=== PATIENT | female | born 1940 | race Caucasian/White ===

== ENCOUNTER → 2017-08-06 08:22 | Outpatient (CLI) | payer MEDICARE, OTHER, SELFPAY ==
[2017-08-06 10:35] LABS: Hemoglobin 14.1 g/dl (12.0-15.0); Mean Corp Hgb Conc 34.4 g/gl (32-36); Mean Corpuscular Hgb 31.9 pg (27.0-32.0); Mean Corpuscular Volume 92.8 fL (81-99); Mean Platelet Vol. 10.4 fl (6.2-12.0); Platelet Count 235 K/mm3 (150-450); Red Blood Count 4.42 M/mm3 (4.2-5.4); White Blood Count 7.3 K/mm3 (4.4-11.0)
[2017-08-06 10:37] LABS: Scan Indicated on CBC? Y/N NO
[2017-08-06 10:53] LABS: AST(SGOT) 18 U/L (15-37); Alanine Aminotransfer ALT/SGPT 33 U/L (13-56); Albumin, Serum 3.5 g/dL (3.2-5.0); Alkaline Phosphatase 67 U/L (45-117); Anion Gap 9 (5-15); BUN 14 mg/dL (7-18); BUN/Creat Ratio 19.2 RATIO (10-20); Calcium,Total 8.6 mg/dL (8.5-10.1); Chloride 106 mmol/L (98-107); Cholesterol 182 mg/dL (200); Creatinine, Serum 0.73 mg/dL (0.55-1.02); EST Glomerular Filtration Rate 83 mL/min (>60); Est Glom Filt Rate - Afr Amer 100 mL/min (>60); Globulin 3.5 g/dL (2.2-4.2); Glucose 126 mg/dL (74-106); High Density Lipoprotein 55 mg/dL; Potassium 4.4 mmol/L (3.5-5.1); Sodium Level 141 mmol/L (136-145); T4 Free Direct 1.11 ng/dL (0.76-1.46); Thyroid Stim Hormone (TSH) 1.54 uIU/mL (0.358-3.74); Triglycerides 137 mg/dL; Very Low Density Lipoprotein 27 mg/dL (5-40)
[2017-08-07 10:27] LABS: Vitamin D,25 Hydroxy 52.2 ng/mL (29.95-100.01)
== END ==
PROVIDERS: Family Provider Family Medicine; PCP Family Medicine; Visit Provider Family Medicine
DX: Z00.00 Encounter for general adult medical examination without abnormal findings (principal)
CPT/HCPCS: 36415; 80053; 80061; 82306; 84439; 84443; 85027

== ENCOUNTER → 2017-09-30 10:55 | Outpatient (CLI) | payer MEDICARE, OTHER, SELFPAY | PROVIDERS: Family Provider Family Medicine; PCP Family Medicine; Visit Provider Family Medicine | DX: I83.93 Asymptomatic varicose veins of bilateral lower extremities (principal); M79.89 Other specified soft tissue disorders; M79.604 Pain in right leg; M79.605 Pain in left leg | CPT/HCPCS: 93970 ==

== ENCOUNTER → 2017-12-16 08:53 | Outpatient (CLI) | payer MEDICARE, OTHER, SELFPAY ==
[2017-12-16 10:37] LABS: Hematocrit 40.1 % (37-47); Hemoglobin 13.6 g/dl (12.0-15.0); Mean Corp Hgb Conc 33.9 g/gl (32-36); Mean Corpuscular Hgb 31.1 pg (27.0-32.0); Mean Corpuscular Volume 91.8 fL (81-99); Mean Platelet Vol. 10.5 fl (6.2-12.0); Platelet Count 224 K/mm3 (150-450); RBC Distribution Width CV 12.9 % (11.6-14.6); RBC Distribution Width SD 42.7 fl (35.1-43.9); Red Blood Count 4.37 M/mm3 (4.2-5.4); White Blood Count 6.2 K/mm3 (4.4-11.0)
[2017-12-16 10:48] LABS: Scan Indicated on CBC? Y/N NO
[2017-12-16 10:54] LABS: Vitamin B12 606 pg/mL (211-911)
[2017-12-16 11:14] LABS: AST(SGOT) 19 U/L (15-37); Alanine Aminotransfer ALT/SGPT 39 U/L (13-56); Albumin, Serum 3.7 g/dL (3.2-5.0); Alkaline Phosphatase 68 U/L (45-117); Anion Gap 12 (5-15); BUN 11 mg/dL (7-18); Calcium,Total 8.9 mg/dL (8.5-10.1); Chloride 106 mmol/L (98-107); Creatinine, Serum 0.73 mg/dL (0.55-1.02); EST Glomerular Filtration Rate 82 mL/min (>60); Est Glom Filt Rate - Afr Amer 100 mL/min (>60); Globulin 3.6 g/dL (2.2-4.2); Glucose 132 mg/dL (74-106); Protein, Total 7.3 g/dL (6.4-8.2); Sodium Level 140 mmol/L (136-145); T4 Total, Thyroxin 12.7 ug/dL (4.8-13.9); Thyroid Stim Hormone (TSH) 1.56 uIU/mL (0.358-3.74)
== END ==
PROVIDERS: Family Provider Family Medicine; PCP Family Medicine; Visit Provider Family Medicine
DX: I10 Essential (primary) hypertension (principal); E11.9 Type 2 diabetes mellitus without complications; E03.9 Hypothyroidism, unspecified; R53.83 Other fatigue
CPT/HCPCS: 36415; 80053; 82306; 82607; 84436; 84443; 85027

== ENCOUNTER → 2018-09-05 10:42 | Outpatient (CLI) | payer MEDICARE, OTHER, SELFPAY ==
--- NOTE | 2018-09-05 10:50 | US_ITS ---
STUDY: THYROID ULTRASOUND REASON FOR EXAM: Female, 77 years old. Nodules TECHNIQUE: Ultrasound evaluation of the thyroid was performed with real-time and static chilel-scale imaging. COMPARISON: 2013 FINDINGS: RIGHT LOBE: The right lobe of the thyroid gland measures 4.3 x 1.4 x 1.8 cm. There is a homogeneous echotexture. 2 separate simple cysts, larger measures 0.4 centimeters, smaller 0.3 cm. LEFT LOBE: The left lobe of the thyroid gland measures 3.4 x 1.5 x 1.2 cm. There is a homogeneous echotexture. There is a solid 0.4 x 0.3 x 0.3 cm nodule, and a 0.6 x 0.5 x 0.4 cm cyst. ISTHMUS: The isthmus measures 0.2 cm. The regional lymph nodes are normal. US/Thyroid IMPRESSION: Normal sized thyroid gland with bilateral subcentimeter cysts and a solid 0.4 cm nodule in the left lobe. This is too small to characterize, and a six-month follow-up is recommended to assure stability Electronically Signed: Kamar Bustamante MD at 13:53 EDT , Service support ,
== END ==
PROVIDERS: Family Provider Family Medicine; PCP Family Medicine; Referring Provider Family Medicine; Visit Provider Family Medicine
DX: E03.9 Hypothyroidism, unspecified (principal)
CPT/HCPCS: 76536

== ENCOUNTER → 2018-09-15 13:04 | Outpatient (CLI) | payer MEDICARE, OTHER, SELFPAY | PROVIDERS: Family Provider Family Medicine; PCP Family Medicine; Referring Provider Nurse Practitioner Adult Health; Visit Provider Nurse Practitioner Adult Health | DX: R30.0 Dysuria (principal) | CPT/HCPCS: 87086; 87088 ==

== ENCOUNTER 2018-11-06 09:30 | Outpatient (RCR) | payer MEDICARE, BC, OTHER, SELFPAY ==
--- NOTE | 2018-09-10 09:41 | HP.PTEVAL_ITS ---
Patient's Visit Information ADRY BOYLE is a 77 year old F referred to Physical Therapy by Forrest Centeno MD with a diagnosis of RIGHT I-T BAND TENDONITIS. Date of Evaluation: 09/09/18 Physical Therapist: Daruis Long, PT, Cert MDT, OCS - Visit Plan Frequency: 2x /Week Duration: 4 Weeks Plan: PT INTERVENTIONS STRETCHING IT BAND,MANUAL THERAPY STM/ IT BAND -METS - SHOOTGUN ,STICK,MODALITIES,HIP STRENGTHENING - Subjective Findings: This 77 y/o female presents to physical therapy with right IT band syndrome. Patient has had right lateral hip pain for several months . Patient located of pain lateral hip to knee ,although patient does have right LS pain. Aggravating walking ,standing lifting leg,stairs . Alleviating Factors sitting. Denies paratghesia/tingling. Bowel/bladder good. Coughing/sneezing. Patient pain affects sleeping on right. Patient pain affects ability to perform housework tasks ,ADL'S ,and houseworks. Patient symptoms affects QOL and function. SOOCIAL: . VOCATION: retired - Pain Right Hip Pain Intensity (Out of 10): 3 Pain Intensity Range: 10 - Objective POSTURE: mild foward posture,knee valgius ..assymtical leg length. NEURO: denies parathesia/tingling,reflexes L3-4,L4-5,L5-S1 2/3. PALAPTION: tender lateral hip ,IT BAND ,greater tronchanter. GAIT: antalgic right side with stance time. PROM: hip flexion 100 degrres,ER 50 ,IR 45 degrees pain. MMT: quads/hams 4/5,hip flexion 4-/5,hip abd 3+/5. FLEXABLITY: piriformis mod tight,IT band min tight - Special Tests R Hip Scour: Negative R Hip Quadrant - Intraarticular Pathology: Negative R Hip Trendelenberg - Glut Medius: Negative R Hip Kristin - IT Band: Negative - Goals Goal 1:: Patient to be Independant with HEP Goal Time Frame: 4-6 Weeks Goal 2:: Patient to decrease lateral hip pain by 50% or greatrer to improve function Goal Time Frame: 4-6 Weeks Goal 3:: Patient increase strength hip abd to 4-/5 to improve gait. Goal Time Frame: 4-6 Weeks Goal 4:: Patient to improve gait with less antalgic 80% Goal Time Frame: 4-6 Weeks Goal 5:: Patient to improve LFES score by 10 points or greater to improve QOL. Goal Time Frame: 4-6 Weeks - Rehabilitation Potential Physical Therapy Diagnosis: This patient has right I-T band along with greater tronhanter tendonitis with pain ,weakness GLUT-MEDIUS,antalgic gait along with leg length discrepency which can be corrected with METS shoot gun tech . Patient to benifit from skilled PT Rehabilitation Potential: Good - Anticipated Interventions Patient/Client Instruction: Educate patient on: Condition, Plan of Care For the Purpose of:: To decrease pain, To increase ROM, To improve muscle performance and motor function, To improve ability to perform ADL's, To increase tolerance to activity/condition/position, To improve ability of physical actions for home/community/work/leisure, To improve health of tissue, To decrease soft tissue restriction, To improve balance, To improve ability to perform tasks related to life management Therapeutic Exercise to Include: Strength training, Flexibilty training, Active ROM Comment: I-T BAND For the Purpose of:: To decrease pain, To decrease swelling/inflammation, To increase oxygenation perfusion, To improve muscle performance and motor function, To increase tolerance to activity/condition/position, To improve ability of physical actions for home/community/work/leisure, To decrease soft tissue restriction, To increase flexibility/ROM Manual Therapy Techniques to Include: Soft tissue mobilization Comment: I T BAND For the Purpose of:: To decrease pain, To increase ROM, To improve nutrient delivery to tissue, To increase oxygenation perfusion, To improve health of tissue, To decrease soft tissue restriction TENS: Yes IF ES: Yes Cryotherapy (ice pack, ice massage): Yes Thermo therapy (hot pack): Yes Ultrasound (thermal/non thermal): Yes For the Purpose of:: To decrease pain, To increase ROM, To improve nutrient delivery to tissue, To increase oxygenation perfusion, To improve health of tissue, To decrease soft tissue restriction Thank you for the opportunity to evaluate your patient. For Medicare and Medicare HMO plans, please review the plan of care and approve it. It will need to be FAXED BACK to us at [phone] for Medicare purposes. For Medicare only, by signing this I certify the plan of care. Please let me know if there are questions or concerns regarding this plan of care. Physician Signature: Date:
--- NOTE | 2018-10-09 13:27 | HP.PTREVAL ---
Forrest Centeno MD, It has been my pleasure to treat ADRY BOYLE over the last 8 visits for RIGHT I-T BAND TENDONITIS. Please see the progress note below for an update on the physical therapy plan of care! Subjective: Pain is better overall.. twisting motion aggravates symptoms hip. Able to exercise.. symptoms worse with inclines and stairs. Objective/Function: POSTURE: mild foward posture. GAIT: ambulates with antalgic gait right side. PALAPTION: tender mild lateral I T BAND. MMT: quads/hams 4/5,hip flexion 4-/5,abd 3+/5. FLEXABLITY: hams and piriformis min tight Plan Plan: PRECAUTIONS (ALLERGIC : LATEX). CONT WITH POC PT INTERVENTIONS STRETCHING IT BAND,MANUAL THERAPY STM/ IT BAND,-MODALITIES,HIP STRENGTHENING Goals Goal 1:: Patient to be Independant with HEP Goal Time Frame: 4-6 Weeks Goal 2:: Patient to decrease lateral hip pain by 50% or greatrer to improve function Goal Time Frame: 4-6 Weeks Goal 3:: Patient increase strength hip abd to 4-/5 to improve gait. Goal Time Frame: 4-6 Weeks Goal 4:: Patient to improve gait with less antalgic 80% Goal Time Frame: 4-6 Weeks Goal 5:: Patient to improve LFES score by 10 points or greater to improve QOL. Goal Time Frame: 4-6 Weeks Anticipated Interventions Patient/Client Instruction: Educate patient on: Condition, Plan of Care For the Purpose of:: To decrease pain, To increase ROM, To improve muscle performance and motor function, To improve ability to perform ADL's, To increase tolerance to activity/condition/position, To improve ability of physical actions for home/community/work/leisure, To improve health of tissue, To decrease soft tissue restriction, To improve balance, To improve ability to perform tasks related to life management Therapeutic Exercise to Include: Strength training, Flexibilty training, Active ROM Comment: I-T BAND For the Purpose of:: To decrease pain, To decrease swelling/inflammation, To increase oxygenation perfusion, To improve muscle performance and motor function, To increase tolerance to activity/condition/position, To improve ability of physical actions for home/community/work/leisure, To decrease soft tissue restriction, To increase flexibility/ROM Manual Therapy Techniques to Include: Soft tissue mobilization Comment: I T BAND For the Purpose of:: To decrease pain, To increase ROM, To improve nutrient delivery to tissue, To increase oxygenation perfusion, To improve health of tissue, To decrease soft tissue restriction TENS: Yes IF ES: Yes Cryotherapy (ice pack, ice massage): Yes Thermo therapy (hot pack): Yes Ultrasound (thermal/non thermal): Yes For the Purpose of:: To decrease pain, To increase ROM, To improve nutrient delivery to tissue, To increase oxygenation perfusion, To improve health of tissue, To decrease soft tissue restriction Please do not hesitate to contact me at [phone] by phone or if you have questions or concerns regarding this new plan of care! Sincerely, Darius Long, PT, Cert MDT, OCS
--- NOTE | 2018-11-06 10:00 | HP.PTDCSUM ---
HP - PT D/C Summary It has been my pleasure to treat ADRY BOYLE under orders from Forrest Centeno MD, for the diagnosis of RIGHT I-T BAND TENDONITIS for a total of 16 visit(s). Discharge Date: 11/06/18 Please see the following information for a summary of their discharge status. - Subjective Subjective: Doing better overall.. - Pain Right Hip Pain Intensity (Out of 10): 1 - Overall Improvement % Improvement: 65 - Objective Objective/Function: POSTURE: mild foward posture. GAIT: reciprocal pattern. MMT: quads/hams/hip flexion 4/5,abd 4-/5. FLEXABLITY: WFL. PALAPATION: MILD TENDER GREATER TRONCHANTER - Goals Goal 1:: Patient to be Independant with HEP Goal Progress: Goal Met Goal 2:: Patient to decrease lateral hip pain by 50% or greatrer to improve function Goal Progress: Goal Met Goal 3:: Patient increase strength hip abd to 4-/5 to improve gait. Goal Progress: Goal Met Goal 4:: Patient to improve gait with less antalgic 80% Goal Progress: Goal Met Goal 5:: Patient to improve LFES score by 10 points or greater to improve QOL. - Plan Plan: D/C - D/C Information Discharge Comments: HEOP If there are questions or concerns regarding this patient's physical therapy, please feel free to call me at [phone]. Thank you for the referral of this patient. Sincerely, Darius Long, PT, Cert MDT, OCS
== END 2018-11-06 19:00 | disposition home or self-care (01) ==
LOC: PT 09:30
PROVIDERS: Family Provider Family Medicine; PCP Family Medicine; Referring Provider Family Medicine; Visit Provider Family Medicine
DX: M76.31 Iliotibial band syndrome, right leg (principal)
CPT/HCPCS: 97014; 97110; 97162; 97530; G0283

== ENCOUNTER → 2018-11-27 09:48 | Outpatient (CLI) | payer MEDICARE, OTHER, SELFPAY ==
[2018-11-27 12:30] LABS: Hematocrit 41.5 % (37-47); Hemoglobin 13.8 g/dL (12.0-15.0); Mean Corp Hgb Conc 33.3 g/dL (32-36); Mean Corpuscular Hgb 30.3 pg (27.0-32.0); Mean Platelet Vol. 10.6 fl (6.2-12.0); Platelet Count 224 K/mm3 (150-450); RBC Distribution Width CV 12.8 % (11.6-14.6); RBC Distribution Width SD 41.8 fl (35.1-43.9); Red Blood Count 4.56 M/mm3 (4.2-5.4)
[2018-11-27 12:39] LABS: Vitamin B12 437 pg/mL (211-911); Vitamin D,25 Hydroxy 43.6 ng/mL (29.95-100.01)
[2018-11-27 12:41] LABS: ALB/GLOB Ratio 1.1 RATIO (0.9-2.4); AST(SGOT) 18 U/L (15-37); Alanine Aminotransfer ALT/SGPT 37 U/L (13-56); Albumin, Serum 3.7 g/dL (3.2-5.0); Alkaline Phosphatase 72 U/L (45-117); Anion Gap 7 (5-15); BUN 12 mg/dL (7-18); BUN/Creat Ratio 16.5 RATIO (10-20); Calcium,Total 8.8 mg/dL (8.5-10.1); Chloride 104 mmol/L (98-107); Cholesterol 154 mg/dL (200); Creatinine, Serum 0.73 mg/dL (0.55-1.02); EST Glomerular Filtration Rate 83 mL/min (>60); Est Glom Filt Rate - Afr Amer 100 mL/min (>60); Globulin 3.4 g/dL (2.2-4.2); Glucose 141 mg/dL (74-106); High Density Lipoprotein 45 mg/dL; Potassium 3.7 mmol/L (3.5-5.1); Protein, Total 7.1 g/dL (6.4-8.2); Sodium Level 138 mmol/L (136-145); Thyroid Stim Hormone (TSH) 1.29 uIU/mL (0.358-3.74); Triglycerides 136 mg/dL; Very Low Density Lipoprotein 27 mg/dL (5-40)
== END ==
PROVIDERS: Family Provider Family Medicine; PCP Family Medicine; Referring Provider Family Medicine; Visit Provider Family Medicine
DX: E11.9 Type 2 diabetes mellitus without complications (principal); E03.9 Hypothyroidism, unspecified; E53.8 Deficiency of other specified B group vitamins; E55.9 Vitamin D deficiency, unspecified
CPT/HCPCS: 36415; 80053; 80061; 82306; 82607; 84443; 85027

== ENCOUNTER → 2020-08-25 07:25 | Outpatient (CLI) | payer MEDICARE, OTHER, SELFPAY ==
[2020-08-25 10:17] LABS: Vitamin B12 442 pg/mL (211-911); Vitamin D,25 Hydroxy 40.4 ng/mL
[2020-08-25 11:34] LABS: ALB/GLOB Ratio 1.2 RATIO (0.9-2.4); AST(SGOT) 27 U/L (15-37); Alanine Aminotransfer ALT/SGPT 56 U/L (13-56); Albumin, Serum 3.8 g/dL (3.2-5.0); Alkaline Phosphatase 79 U/L (45-117); Anion Gap 9 (5-15); BUN 13 mg/dL (7-18); BUN/Creat Ratio 17.3 RATIO (10-20); Calcium,Total 8.7 mg/dL (8.5-10.1); Chloride 103 mmol/L (98-107); Cholesterol 180 mg/dL (200); Creatinine, Serum 0.75 mg/dL (0.55-1.02); EST Glomerular Filtration Rate 80 mL/min (>60); Est Glom Filt Rate - Afr Amer 96 mL/min (>60); Globulin 3.3 g/dL (2.2-4.2); Glucose 188 mg/dL (74-106); High Density Lipoprotein 48 mg/dL; Protein, Total 7.1 g/dL (6.4-8.2); Sodium Level 140 mmol/L (136-145); Thyroid Stim Hormone (TSH) 1.18 uIU/mL (0.358-3.74); Triglycerides 129 mg/dL; Very Low Density Lipoprotein 26 mg/dL (5-40)
== END ==
PROVIDERS: PCP Family Medicine; Referring Provider Family Medicine; Visit Provider Family Medicine
DX: E11.9 Type 2 diabetes mellitus without complications (principal); E55.9 Vitamin D deficiency, unspecified; E03.9 Hypothyroidism, unspecified; E53.8 Deficiency of other specified B group vitamins
CPT/HCPCS: 36415; 80053; 80061; 82306; 82607; 84443

== ENCOUNTER → 2020-09-09 09:50 | Outpatient (CLI) | payer MEDICARE, OTHER, SELFPAY ==
--- NOTE | 2020-09-09 09:58 | US_ITS ---
STUDY: THYROID ULTRASOUND REASON FOR EXAM: Female, 79 years old. Abnormal TSH levels TECHNIQUE: Ultrasound evaluation of the thyroid was performed with real-time and static chilel-scale imaging. COMPARISON: 09/05/2018 FINDINGS: RIGHT LOBE: The right lobe of the thyroid gland measures 3.8 x 1.0 x 1.2 cm. There is a homogeneous echotexture. There is a stable 3 mm cyst. There is a hyperechoic nodule measuring 0.4 cm. LEFT LOBE: The left lobe of the thyroid gland measures 3.4 x 1.1 x 1.1 cm. There is a homogeneous echotexture. There is a stable 0.4 cm cyst, and a stable 0.8 cm nodule. There is a new hyperechoic 0.7 cm nodule. ISTHMUS: The isthmus measures 0.3 cm. The regional lymph nodes are normal. US/Thyroid IMPRESSION: Normal sized homogeneous thyroid gland with bilateral subcentimeter cysts and bilateral subcentimeter nodules. Findings suggest goiter. However, because there is a new hyperechoic nodule in the left thyroid lobe compared to the previous study, another six-month follow-up ultrasound is recommended Electronically Signed: Kamar Bustamante MD at 15:07 EDT , Service support ,
== END ==
PROVIDERS: PCP Family Medicine; Referring Provider Family Medicine; Visit Provider Family Medicine
DX: E03.9 Hypothyroidism, unspecified (principal)
CPT/HCPCS: 76536

== ENCOUNTER 2020-11-08 12:30 | Outpatient (RCR) | payer MEDICARE, OTHER, BC, SELFPAY ==
--- NOTE | 2020-09-08 11:34 | HP.PTEVAL_ITS ---
Patient's Visit Information ADRY BOYLE is a 79 year old F referred to Physical Therapy by Dr. Forrest Arnett MD with a diagnosis of R HIP GREATER TROCHANTERIC BURSITIS. Date of Evaluation: 09/08/20 Physical Therapist: Nicole Marin PT, Cert MDT - Visit Plan Frequency: 2-3x /Week Duration: 4-6 Weeks Plan: RIGHT HIP US. MH. POSTURE CORRECTION/STRENGTHENING, INSTRUCTION IN APPROPRIATE BODY MECHANICS AND ACTIVITY MODIFICATIONS. DLS STARTING WITH A RKYS TRAL SPINE PROGRESSING ROM TOLERATED. DANILO LE ROM, STRETCHING AND STRENGTHENING. HEP INSTRUCTION. - Subjective Work/Leisure: RETIRED. Present symptoms: RIGHT LATERAL HIP PAIN. RIGHT THIGH PAIN. RIGHT LOW BACK PAIN. (ALL PAIN IS BETTER SINCE THE INJECTION). Present since: A COUPLE YEARS AGO. Pain Scale: WORST 5/10 LEAST 2/10. Currently: 2/10. Commenced as a result of: NO APPARENT REASON. Symptoms at onset: SORENESS IN THE HIP. Worse: STEPS, LYING ON RIGHT SIDE. STEPPING DOWN, TWISTING, LIFTING, PROLONGED SITTING. GETTING OUT OF BED. - PATIENT REPORTS ALL OF THESE THINGS ARE BETTER SINCE RECEIVING THE INJECTION 2 DAYS AGO. Better: WARM SHOWER, INJECTION, SITTING FOR SHORT PERIODS OF TIME, RECLINING. Disturbed sleep: NOT NOW BUT WAS BEFORE RECEIVING CORTISONE SHOT FROM DR. ARNETT A COUPLE DAYS AGO Saturday09/06/20. Previous history/Previous treatment: PT HERE AT [facility] 2 YEARS AGO WITH BENEFIT. NOT SURE IF SHE HAS HAD AN INJECTION BEF ORE OR NOT BUT SHE THINKS SHE DID. NO RIGHT HIP SURGERY. NO LOW BACK SURGERY. Treatment this episode: INJECTION BY DR. ARNETT THAT REALLY HELPED A LOT. Coughing/sneezing/straining: NEGATIVE. Gait: PATIENT REPORTS SHE IS STILL AFRAID SHE IS GOING TO FALL. STATES THAT SHE IS STILL WALKING SLOW AND CAUTIOUSLY. NOT USING ANY ASSISTIVE DEVICES BUT HAD TO HOLD ON TO HER BEFORE THE SHOT. Accidents: NO. Unexplained weight loss: NO. Imaging: NO RECENT IMAGING BUT PATIENT REPORTS HAVING IMAGING IN THE PAST THAT SHOWED A SLIGHT LEG LENGTH DISCREPENCY BUT SHE DOESN'T REMEMBER WHICH ONE. PMH/Recent major surgery: THYROID DZ, HTN, HIGH CHOLESTEROL, NIDDM. OTHER: PATIENT REPORTS CURRENTLY LIVING IN A HOUSE WITH STEPS WITH HR INTO HOME. STEPS TO BASEMENT AND HAS TO GET TO BASEMENT BECAUSE HOUSE IS BEING SOLD. 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 PATIENT REPORTS THEY HAVE A HOUSE HERE AND ONE IN [place]. - Objective Sitting/Standing Posture: POOR. NORMAL LORDOSIS AND NO RELEVENT LATERAL SHIFT BUT SLOUCHED IN SITTING AND STANDING. ILIAC CRESTS ARE LEVEL. Active Correction of posture: WORSE. Other Observations: THIS PATIENT AMBULATES INDEP'LY INTO PT WITH SLOW ANTALGIC GAIT PATTERN AND LIMPING ON RIGHT LE. NO ASSISTIVE DEVICES. NO LOB. INDEP TRANSFER SIT TO STAND WITHOUT UE ASSIST. GOOD STANDING BALANCE. TRANSFERS ARE ALSO SLOW AND GUARDED BUT PATIENT IS ABLE TO INDEP;LY LIFT R LE WITHOUT UE ASSIST SIT TO SUPINE AND REVERSE. Motor deficit: DANILO LE STRENGTH GROSSLY 4-5/5 WITH MMT'ING EXCEPT RIGHT HIP FLEX 4-/5, ABD 3+/5 AND HIP EXT 4-/5. Sensory deficit: DANILO LE LIGHT TOUCH SENSATIO APPREARS INTACT AND SYMMETRICAL. ROM deficit: RIGHT: MILD IT TIGHTNESS. MODERATE PIRIFORMIS TIGHTNESS. RIGHT HIP ACTIVE FLEXION TO 100 DEG, IR 30 DEG, ER 38 DEG. L HIP FLEX/IR/ER/EXT TIGHTNESS TOO. PAIN AT THE END OF THE AVAILABLE ROM WITH TESTING OF THE RIGHT HIP BUT NOT THE LEFT. Dural Signs: NEGATIVE DANILO LE'S. Lumbar mvm t loss: flex - NIL. ext - YOCASTA. R SG - MOD. L SG - YOCASTA. PATIENT C/O INCREASED RIGHT HIP PAIN WITH LUMBAR ROM TESTING INTO L SG. Core strength: POOR. Palpation: TENDERNESS WITH PALPATION IN THE RIGHT GREATER TROCH REGION. OTHER: POSITIVE R AVA TEST. TREATMENT: NEUROMUSCULAR REEDUCATION - RETRAINING OF MVMT AND POSTURE FOR SITTING, LYING AND STANDING ACTIVITIES. - Goals Goal 1:: DECREASE C/O RIGHT HIP PAIN Goal Time Frame: 4-6 Weeks Goal 2:: IMPROVE STAIR ASCENDING AND DESCENDING, TRANSFER, SITTING, WALKING, LIFTING AND R SDLY FUNCTION Goal Time Frame: 4-6 Weeks Goal 3:: INSTRUCT IN PROPHYLAXIS Goal Time Frame: 4-6 Weeks - Anticipated Interventions Patient/Client Instruction: Educate patient on: Condition, Plan of Care, Risk Factors For the Purpose of:: To improve self management Therapeutic Exercise to Include: Strength training, Body mechanics, Postural training, Flexibilty training, Gait and locomotor training, Neuromotor development, Dynamic Lumbar Stabilization For the Purpose of:: To decrease pain, To improve muscle performance and motor function, To increase tolerance to activity/condition/position, To improve ability of physical actions for home/community/work/leisure, To improve gait and locomotor functions Thermo therapy (hot pack): Yes Ultrasound (thermal/non thermal): Yes Comment: NEEDED For the Purpose of:: To decrease pain, To decrease swelling/inflammation, To improve nutrient delivery to tissue Thank you for the opportunity to evaluate your patient. For Medicare and Medicare HMO plans, please review the plan of care and approve it. It will need to be FAXED BACK to us at [phone] for Medicare purposes. For Medicare only, by signing this I certify the plan of care. Please let me know if there are questions or concerns regarding this plan of care. Physician Signature: Date:
--- NOTE | 2020-10-03 14:19 | HP.PTREVAL_ITS ---
Dr. Forrest Arnett MD, It has been my pleasure to treat ADRY BOYLE over the last 9 visits for R HIP GREATER TROCHANTERIC BURSITIS. Please see the progress note below for an update on the physical therapy plan of care! Subjective: PATIENT REPORTS SHE CAN GO UP AND DOWN STEPS A COUPLE TIMES A DAY NOW. PATIENT STATES I CAN NOW LAY ON MY RIGHT SIDE AT NIGHT FOR A LITTLE BIT BUT BEFORE I COULDN'T DO IT AT ALL. PATIENT REPORTS SHE HAS A FOLLOW UP SANDRA'T WITH DR. ARNETT ON SATURDAY. PATIENT REPORTS SHE IS IMPROVING AND FEELS LIKE SHE COULD BENEFIT FROM MORE THERAPY. PATIENT REPORTS HER PAIN IS ALWAYS WORSE IN THE MORNINGS UP TO 3/10 RIGHT HIP PAIN AT WORST IN THE LAST FEW DAYS. PATIENT DENIES ANY NEW SYMPTOMS SINCE STARTING PT. Objective/Function: PATIENT WAS SEEN TODAY FOR RE-ASSESSMENT OF PROGRESS TOWARD THE SET PT GOALS AND THE NEED FOR FURTHER PHYSICAL THERAPY VS READINESS FOR DISCHARGE. PATIENT IS MAKING SLOW PROGRESS TOWARD ALL PT GOALS AND IS A GOOD CANDIDATE TO CONTINUE PT BASED ON PROGRESS MADE AND ROOM FOR FURTHER IMPROVEMENT. PATIENT IS AGREEABLE. UPON EXAM TODAY: RIGHT HIP FLEX 4/5, ABD 4- /5 AND HIP EXT 4-/5. THIS PATIENT AMBULATES INDEP'LY INTO PT WITH IMPROVED JERICHO AND DECREASED R LE LIMP COMPARED TO INITIAL EVAL. ROM deficit: RIGHT: MILD IT TIGHTNESS. MODERATE PIRIFORMIS TIGHTNESS. RIGHT HIP ACTIVE FLEXION TO 110 DEG, IR 30 DEG, ER 39 DEG. Lumbar mvmt loss: flex - NIL. ext - YOCASTA. R SG - MOD. L SG - MOD. PATIENT REPORTS LB SORENESS WITH LUMBAR ROM TESTING ALL PLANES. Core strength: POOR. Palpation: PATIENT STILL HAS TENDERNESS WITH PALPATION IN THE RIGHT GREATER TROCH REGION BUT PATIENT REPORTS IT IS BETTER. OTHER: NEGATIVE RIGHT AVA TEST TODAY WITH PATIENT REPORTING TIGHTNESS BUT NOT PAIN WITH TESTING. Plan Plan: CONTINUE PT TOLERATED 2X'S A WK X 5 WKS FOR: RIGHT HIP US. MH. POSTURE CORRECTION/STRENGTHENING, INSTRUCTION IN APPROPRIATE BODY MECHANICS AND ACTIVITY MODIFICATIONS. DLS STARTING WITH A NEUTRAL SPINE PROGRESSING ROM TOLERATED. DANILO LE ROM, STRETCHING AND STRENGTHENING. HEP INSTRUCTION. Balance/Gait/Functional tests - Balance/Special Test Scores Lower Extremity Functional Score: 33 Goals Goal 1:: DECREASE C/O RIGHT HIP PAIN Goal Time Frame: 4-6 Weeks Goal Progress: Progressing Goal 2:: IMPROVE STAIR ASCENDING AND DESCENDING, TRANSFER, SITTING, WALKING, LIFTING AND R SDLY FUNCTION Goal Time Frame: 4-6 Weeks Goal Progress: Progressing Goal 3:: INSTRUCT IN PROPHYLAXIS Goal Time Frame: 4-6 Weeks Goal Progress: Progressing Anticipated Interventions Patient/Client Instruction: Educate patient on: Condition, Plan of Care, Risk Factors For the Purpose of:: To improve self management Therapeutic Exercise to Include: Strength training, Body mechanics, Postural training, Flexibilty training, Gait and locomotor training, Neuromotor development, Dynamic Lumbar Stabilization For the Purpose of:: To decrease pain, To improve muscle performance and motor function, To increase tolerance to activity/condition/position, To improve ability of physical actions for home/community/work/leisure, To improve gait and locomotor functions Thermo therapy (hot pack): Yes Ultrasound (thermal/non thermal): Yes Comment: NEEDED For the Purpose of:: To decrease pain, To decrease swelling/inflammation, To improve nutrient delivery to tissue Please do not hesitate to contact me at [phone] by phone or if you have questions or concerns regarding this new plan of care! Sincerely, Nicole Marin, PT, Cert MDT
--- NOTE | 2020-11-08 14:00 | HP.PTDCSUM_ITS ---
It has been my pleasure to treat ADRY BOYLE referred by Dr. Forrest Centeno MD, with the diagnosis of R HIP GREATER TROCHANTERIC BURSITIS for a total of 18 visit(s). Discharge Date: Please see the following information for a summary of their discharge status. Subjective: PATIENT REPORTS SHE IS STILL HAVING EXTREME SORENESS. STATES THAT AFTER THE DOCTOR GAVE HER A SHOT HER PAIN STARTED SWITCHING FROM HER HIP TO HER LOW BACK. STATES HER LOW BACK IS VERY SORE. STATES THAT WHEN SHE FIRST STARTED PT SHE COULDN'T DO STEPS BECAUSE OF THE PAIN IN THE RIGHT HIP WITH WEIGHT BEARING BUT NOW SHE CAN DO MUCH BETTER. STATES SHE DOESN'T HAVE THE AWFUL PAIN WITH R LE WEIGHT BEARING NOW AND SHE IS VERY GREATFUL FOR THAT. STATES SHE FEELS PT HAS HELPED HER WALK BETTER AND OTHERWISE SHE WOULD BE USING A CANE. STATES THEY SOLD THEIR HOUSE AND ARE BUSY TRYING TO GET MOVED OUT. WANTS TO STOP PT. MOVING TO [place]. Right Hip Pain Intensity (Out of 10): 4 % Improvement: 50 Objective/Function: PATIENT WAS SEEN TODAY FOR RE-ASSESSMENT OF PROGRESS TOWARD THE SET PT GOALS AND THE NEED FOR FURTHER PHYSICAL THERAPY VS READINESS FOR DISCHARGE. PATIENTS PROGRESS IS PLATEAUING AND LIMITED TO SOME DEGREE BY BACK PAIN. SHE IS MOVING TO [place] IN ABOUT A MONTH AND REQUESTING D/C FROM PT. UPON EXAM TODAY: RIGHT HIP FLEX 4/5, ABD 4-/5 AND HIP EXT 4-/5. THIS PATIENT AMBULATES INDEP'LY INTO PT WITH IMPROVED JERICHO (BUT STILL DECREASED) AND NO LIMP TODAY ON RIGHT LE. SHE IS NOW ABLE TO ASCEND STEPS RECIP WITH LIGHT HR ASSIST WITHOUT DEVIATION. SHE PREFERS TO COME DOWN STEPS ONE STEP AT A TIME AND DOES SO WELL WITH LIGHT HR ASSIST. PATIENT DENIED INCREASED PAIN GOING UP AND DOWN STEPS TODAY. ROM deficit: RIGHT: MODERATE PIRIFORMIS TIGHTNESS. RIGHT HIP ACTIVE FLEXION TO 116 DEG, IR 30 DEG, ER 41 DEG. Lumbar mvmt loss: flex - NIL. ext - YOCASTA. R SG - MOD. L SG - MOD. PATIENT REPORTS LB SORENESS WITH LUMBAR ROM TESTING ALL PLANES. Core strength: POOR. Palpation: PATIENT IS NOT TENDER TODAY IN THE RIGHT GREATER TROCH REGION OR LOW BACK WITH LIGHT PALPATION. OTHER: POSITIVE RIGHT AVA TEST TODAY WITH PATIENT REPORTING TIGHTNESS AND SORENESS COMPARED TO LEFT. Goal 1:: DECREASE C/O RIGHT HIP PAIN Goal Progress: Goal Met Goal 2:: IMPROVE STAIR ASCENDING AND DESCENDING, TRANSFER, SITTING, WALKING, LIFTING AND R SDLY FUNCTION Goal Progress: Goal Met Goal 3:: INSTRUCT IN PROPHYLAXIS Goal Progress: Goal Met Plan: D/C TO FOLLOW UP WITH PHYSICIAN. PATIENT AGREEABLE. If there are questions or concerns regarding this patient's physical therapy, please feel free to call me at [phone]. Thank you for the referral of this patient. Sincerely, Nicole Marin, PT, Cert MDT Balance/Gait/Functional tests - Balance/Special Test Scores Lower Extremity Functional Score: 32
== END 2020-11-08 15:39 | disposition home or self-care (01) ==
LOC: PT 12:30
PROVIDERS: PCP Family Medicine; Referring Provider Family Medicine; Visit Provider Family Medicine
DX: M70.61 Trochanteric bursitis, right hip (principal)
CPT/HCPCS: 97035; 97110; 97112; 97162; 97164

== ENCOUNTER → 2020-11-22 08:30 | Outpatient (CLI) | payer MEDICARE, OTHER, SELFPAY ==
[2020-11-22 10:10] LABS: Anion Gap 8 (5-15); BUN 12 mg/dL (7-18); BUN/Creat Ratio 15.9 RATIO (10-20); Chloride 104 mmol/L (98-107); Creatinine, Serum 0.76 mg/dL (0.55-1.02); EST Glomerular Filtration Rate 79 mL/min (>60); Est Glom Filt Rate - Afr Amer 95 mL/min (>60); Glucose 169 mg/dL (74-106); Potassium 4.5 mmol/L (3.5-5.1); Sodium Level 142 mmol/L (136-145)
== END ==
PROVIDERS: PCP Family Medicine; Referring Provider Family Medicine; Visit Provider Family Medicine
DX: I10 Essential (primary) hypertension (principal)
CPT/HCPCS: 36415; 80048

== ENCOUNTER → 2020-11-29 15:26 | Outpatient (CLI) | payer MEDICARE, OTHER, SELFPAY ==
--- NOTE | 2020-11-29 15:20 | RAD_ITS ---
STUDY: X-RAY - LUMBAR SPINE REASON FOR EXAM: Female, 80 years old. Low back pain TECHNIQUE: 5 view(s) of the lumbar spine were obtained. COMPARISON: None FINDINGS: Normal lumbar lordosis. There is no substantial scoliosis. There is a normal alignment of the vertebrae. There is multilevel endplate spondylosis of the lumbar vertebrae. There is multi-level degenerative disc disease with multi-level disc space narrowing. There is atherosclerotic calcification of the abdominal aorta without a demonstrated aneurysm. RAD/L/S Spine Min 4 Views IMPRESSION: Degenerative changes of the spine, as detailed above. Electronically Signed: Kamar Bustamante MD at 13:43 EDT , Service support ,
== END ==
PROVIDERS: PCP Family Medicine; Referring Provider Family Medicine; Visit Provider Family Medicine
DX: M54.9 Dorsalgia, unspecified (principal)
CPT/HCPCS: 72110

== ENCOUNTER → 2020-11-30 07:11 | Outpatient (CLI) | payer MEDICARE, OTHER, SELFPAY ==
[2020-11-30 10:13] LABS: Hematocrit 39.5 % (37-47); Hemoglobin 13.1 g/dL (12.0-15.0); Mean Corp Hgb Conc 33.2 g/dL (32-36); Mean Corpuscular Volume 93.4 fL (81-99); Mean Platelet Vol. 10.5 fl (6.2-12.0); Platelet Count 237 K/mm3 (150-450); RBC Distribution Width CV 12.7 % (11.6-14.6); RBC Distribution Width SD 43.5 fl (35.1-43.9); Red Blood Count 4.23 M/mm3 (4.2-5.4); White Blood Count 7.3 K/mm3 (4.4-11.0)
[2020-11-30 10:34] LABS: Hemoglobin A1c 7.1 % (3.8-5.6)
[2020-11-30 10:39] LABS: Cholesterol 153 mg/dL (200); High Density Lipoprotein 46 mg/dL; Thyroid Stim Hormone (TSH) 1.28 uIU/mL (0.358-3.74); Triglycerides 112 mg/dL; Very Low Density Lipoprotein 22 mg/dL (5-40)
[2020-11-30 12:18] LABS: Vitamin D,25 Hydroxy 70.8 ng/mL
== END ==
PROVIDERS: PCP Family Medicine; Referring Provider Family Medicine; Visit Provider Family Medicine
DX: E11.9 Type 2 diabetes mellitus without complications (principal); E03.9 Hypothyroidism, unspecified; E55.9 Vitamin D deficiency, unspecified
CPT/HCPCS: 36415; 80061; 82306; 83036; 84443; 85027